=== PATIENT | male | born 1950 | race Caucasian/White ===

== ENCOUNTER 2017-07-20 06:39 | Observation (INO) | payer BC ==
[2017-07-20] MEDS ORDERED: NS 0.9% 1000 ML* 1,000 ML IV ONE (06:51)
[2017-07-20] MEDS ORDERED: Diltiazem IV* 5 MG/ML 5 ML VIAL (for loading dose/IV Push) (25 MG) IV PUSH ONE (06:51)
[2017-07-20 07:35] LABS: ABS Basophils 0.1 10^3/ul (0-0.2); ABS Eosinophils 0.1 10^3/ul (0-0.6); ABS Lymphocytes 2.2 10^3/ul (1.0-4.8); ABS Neutrophils 4.4 10^3/ul (1.5-7.7); ABS Nucleated RBC 0 10^3/ul; Eosinophil % 1.3 % (0-6); Hematocrit 36 % (42-52); Hemoglobin 12.1 g/dl (14.0-18.0); Lymphocyte % 28.3 % (25-47); Mean Corpuscular HGB Conc 34 g/dl (31-36); Mean Corpuscular Hemoglobin 34 pg (27-31); Mean Corpuscular Volume 99 fL (80-94); Mean Platelet Volume 6.5 um3 (7.4-10.4); Nucleated Red Blood Cells % 0.1; Platelet Count 385 10^3/ul (150-450); Red Blood Count 3.59 10^6/ul (4.0-5.4); Red Cell Distribution Width 19 % (10.5-15); White Blood Count 7.7 10^3/ul (3.5-10.8)
[2017-07-20] MEDS ORDERED: Diltiazem DRIP* 100 MG/100 ML ADDV.BAG IVPB ONE ×2 (07:42→08:52)
[2017-07-20 08:01] LABS: EGFR Non-African American 66.7 (>60)
--- NOTE | 2017-07-20 08:05 | RAD ---
HISTORY: Palpitation COMPARISONS: None VIEWS: 1: frontal portable view of the chest at 6:59 AM FINDINGS: LINES AND TUBES: None. CARDIOMEDIASTINAL SILHOUETTE: The cardiomediastinal silhouette is normal for portable technique. PLEURA: The costophrenic angles are sharp. No pleural abnormalities are noted. LUNG PARENCHYMA: The lungs are clear. ABDOMEN: The upper abdomen is clear. There is no subphrenic gas. BONES AND SOFT TISSUES: No bone or soft tissue abnormalities are noted. IMPRESSION: NO ACTIVE CARDIOPULMONARY DISEASE.
[2017-07-20] MEDS ORDERED: Nitroglycerin TAB 0.4 MG* 0.4 MG TAB SL ONE (08:13)
[2017-07-20] MEDS ORDERED: Nitroglycerin TAB 0.4 MG* 0.4 MG TAB SL PRN (08:52)
[2017-07-20] MEDS ORDERED: Acetaminophen TAB* 325 MG PO PRN (08:52)
[2017-07-20] MEDS ORDERED: Morphine VIAL* 4 MG/ML VIAL (1 ml vial) IV PRN (08:52)
[2017-07-20] MEDS ORDERED: Iohexol 350* (CONTRAST) 500 ML MDV IV ONE (08:54)
--- NOTE | 2017-07-20 09:37 | RAD ---
HISTORY: Incidentally, history of brain hemorrhage, anticoagulation COMPARISONS: None TECHNIQUE: Multiple contiguous axial CT scans were obtained of the head without intravenous contrast. FINDINGS: HEMORRHAGE/INFARCT: There is no hemorrhage or acute infarct. MASSES/SHIFT: There is no mass or shift. EXTRA-AXIAL SPACES: There are no extra-axial fluid collections. SULCI AND VENTRICLES: The sulci and ventricles are normal in size and position for the patient's stated age. CEREBRUM: There are no focal parenchymal abnormalities. BRAINSTEM: There are no focal parenchymal abnormalities. CEREBELLUM: There are no focal parenchymal abnormalities. VESSELS: The vessels are grossly normal. PARANASAL SINUSES: The paranasal sinuses are clear. ORBITS: The orbits are unremarkable. BONES AND SOFT TISSUE: No bone or soft tissue abnormalities are noted. OTHER: None IMPRESSION: NO ACUTE INTRACRANIAL PATHOLOGY.
--- NOTE | 2017-07-20 09:39 | RAD ---
HISTORY: Malignancy, atrial fibrillation, rule out PE COMPARISONS: None TECHNIQUE: Multiple contiguous axial CT scans of the chest were obtained after the administration of nonionic intravenous contrast, timed to the pulmonary arterial phase of contrast enhancement.. Coronal and sagittal multiplanar reformations are also submitted for review. FINDINGS: NECK AND THYROID: The lower neck and thyroid are unremarkable. CHEST WALL: There is no lower cervical, axillary, or supraclavicular lymphadenopathy by size criteria. HEART AND PERICARDIUM: The heart is unremarkable. AORTA AND PULMONARY VASCULATURE: There is no pulmonary arterial filling defect to suggest pulmonary embolism. Evaluation of the aorta is limited secondary to the phase of contrast administration but is grossly normal. MEDIASTINUM: There are subcentimeter short axis prevascular and paratracheal lymph nodes. There is a 1.3 cm short axis precarinal lymph node on the right. HARLEEN: There is no hilar lymphadenopathy by size criteria. AIRWAY AND ESOPHAGUS: The airway is unremarkable, without endobronchial filling defect. The esophagus is grossly normal. LUNG PARENCHYMA: There is emphysematous change PLEURA: No pleural abnormalities are noted. UPPER ABDOMEN: The upper abdomen is unremarkable. BONES AND SOFT TISSUES: Degenerative changes are noted along the spine. OTHER: None. IMPRESSION: 1. MILDLY ENLARGED MEDIASTINAL LYMPH NODE. 2. NO PULMONARY ARTERIAL FILLING DEFECT TO SUGGEST PULMONARY EMBOLISM.
--- NOTE | 2017-07-20 10:41 | ED ---
Miki Middleton Tenzin, scribed for Iván Farmer MD on 07/20/17 at 0759 . HPI Chest Pain - HPI Summary HPI Summary: Pt is a 66 years old male with a history of A-fib complaining of chest pain on the left side that started since last night. The pt complains of lightheadedness when he is standing up and SOB when he is walking around. He reports that he had 3 glasses of wine, coffee and smoked a cigarette last night. 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 The pt reports history of intracerebral hemorrhage and currently not on any anticoagulants. - History of Current Complaint Chief Complaint: EDChestPainROMI Time Seen by Provider: 07/20/17 07:18 Hx Obtained From: Patient Onset/Duration: Started Hours Ago, Still Present Timing: Constant, Lasting Hours Initial Severity: Moderate Current Severity: Mild Pain Intensity: 4 Pain Scale Used: 0-10 Numeric Associated Signs and Symptoms: Positive: Shortness of Breath, Lightheadedness - Allergy/Home Medications Allergies/Adverse Reactions: Allergies Allergy/AdvReac Type Severity Reaction Status Date / Time No Known Allergies Allergy Verified 07/20/17 06:52 Home Medications: Home Medications FLUoxetine CAP* [PROzac CAP*] 20 mg PO DAILY 07/20/17 [History Confirmed ] raNITIdine HCl [Gnp Acid Control 150 Maxi] 150 mg PO DAILY PRN 07/20/17 [ History Confirmed 07/20/17] PMH/Surg Hx/FS Hx/Imm Hx Cardiovascular History: Reports: Hx Atrial Fibrillation Opthamlomology History: Denies: Hx Legally Blind EENT History: Denies: Hx Deafness - Cancer History Cancer Type, Location and Year: Urethral cancer Infectious Disease History: No Infectious Disease History: Denies: Traveled Outside the [place] in Last 30 Days - Family History Known Family History: Positive: Other Family History: Pt denies any relevant family history. - Social History Alcohol Use: None Substance Use Type: Reports: None Smoking Status (MU): Never Smoked Tobacco Review of Systems Positive: Other - lightheadednes when standing up Positive: Chest Pain, Other - A-Fib Positive: Shortness Of Breath All Other Systems Reviewed And Are Negative: Yes Physical Exam - Summary Physical Exam Summary: Appearance: The patient is well-nourished in no acute distress and in no acute pain. Skin: The skin is warm and dry and skin color reflects adequate perfusion. HEENT: The head is normocephalic and atraumatic. The pupils are equal and reactive. The conjunctivae are clear and without drainage. Nares are patent and without drainage. Mouth reveals moist mucous membranes and the throat is without erythema and exudate. The external ears are intact. The ear canals are patent and without drainage. The tympanic membranes are intact. Neck: the neck is supple with full range of motion and non-tender. There are no carotid bruits. There is no neck vein distension. Respiratory: Chest is non-tender. Lungs are clear to auscultation and breath sounds are symmetrical and equal. Cardiovascular: Heart is Tachycardic and irregularly irregular rhythm. There is no murmur or rub auscultated. There is crackles in the right base. There is no peripheral edema and pulses are symmetrical and equal. Abdomen: The abdomen is soft and non-tender. There are normal bowel sounds heard in all four quadrants and there is no organomegaly palpated. Musculoskeletal: There is no back tenderness noted. Extremities are non-tender with full range of motion. There is good capillary refill. There is no peripheral edema or calf tenderness elicited. Neurological: Patient is alert and oriented to person, place and time. The patient has symmetrical motor strength in all four extremities. Cranial nerves are grossly intact. Deep tendon reflexes are symmetrical and equal in all four extremities. Psychiatric: The patient has an appropriate affect and does not exhibit any anxiety or depression. Triage Information Reviewed: Yes Vital Signs On Initial Exam: Initial Vitals Temp Pulse Resp BP Pulse Ox 97.0 F 138 18 120/95 97 07/20/17 06:49 07/20/17 06:49 07/20/17 06:49 07/20/17 06:49 07/20/17 06:49 Vital Signs Reviewed: Yes Diagnostics - Vital Signs Vital Signs Temp Pulse Resp BP Pulse Ox 07/20/17 07:33 97 07/20/17 07:27 95 15 115/85 96 07/20/17 07:25 105 15 120/81 97 07/20/17 07:04 101 18 118/93 97 07/20/17 06:49 97.0 F 138 18 120/95 97 - Laboratory Lab Results: Lab Results 07/20/17 Range/Units 07:28 WBC 7.7 (3.5-10.8) 10^3/ul RBC 3.59 L (4.0-5.4) 10^6/ul Hgb 12.1 L (14.0-18.0) g/dl Hct 36 L (42-52) % MCV 99 H (80-94) fL MCH 34 H (27-31) pg MCHC 34 (31-36) g/dl RDW 19 H (10.5-15) % Plt Count 385 (150-450) 10^3/ul MPV 6.5 L (7.4-10.4) um3 Neut % (Auto) 56.7 (38-83) % Lymph % (Auto) 28.3 (25-47) % [place] % (Auto) 12.5 H (0-7) % Eos % (Auto) 1.3 (0-6) % Baso % (Auto) 1.2 (0-2) % Absolute Neuts (auto) 4.4 (1.5-7.7) 10^3/ul Absolute Lymphs (auto) 2.2 (1.0-4.8) 10^3/ul Absolute Monos (auto) 1.0 H (0-0.8) 10^3/ul Absolute Eos (auto) 0.1 (0-0.6) 10^3/ul Absolute Basos (auto) 0.1 (0-0.2) 10^3/ul Absolute Nucleated RBC 0 10^3/ul Nucleated RBC % 0.1 Result Diagrams: 07/20/17 07:28 07/20/17 07:28 Lab Statement: Any lab studies that have been ordered have been reviewed, and results considered in the medical decision making process. - Radiology CXR Xray Interpretation: No Acute Changes - Impression: No active cardiopulmonary disease. Dr. Farmer reviewed this report. Radiology Interpretation Completed By: Radiologist - EKG 06:43 Cardiac Rate: Tachycardia - rate at 147 BPM EKG Rhythm: Atrial Fibrillation EKG Interpretation: The pt has RVR but no ischemia. EKG is interpreted by Dr. Farmer. Re-Evaluation - Re-Evaluation First Eval Change: Improved Chest Pain Course/Dx - Course Course Of Treatment: Mr. Mir presents with about a ten hour history of being in A-fib with RVR and chest pain. His rate was slowd on arrival with diltiazem but his trop returned high indeterminant at 3.5. His CP improved with slowing but then worsened again. He was given a NTG with complete relief. I spoke with Dr. Cosme who recommended rate control for now and the patient is being admitted to the hospitalist service. - Diagnoses Provider Diagnoses: Atrial fibrillation with RVR, Chest pain - Provider Notifications Discussed Care Of Patient With: Keagan Cosme Time Discussed With Above Provider: 09:01 Instructed by Provider To: Other - Dr. Cosme, cardiology, recommends rate control and admission. Dr. Titus, hospitalist, will admit the patient. - Critical Care Time Critical Care Time: 30-74 min Discharge - Sign-Out/Discharge Documenting (check all that apply): Discharge/Admit/Transfer - Discharge Plan Condition: Stable Disposition: ADMITTED TO [facility] Referrals: No Primary Care Phys,NOPCP [Primary Care Provider] - - Billing Disposition and Condition Condition: STABLE Disposition: [facility] [place] The documentation as recorded by the Miki cherry Tenzin accurately reflects the service I personally performed and the decisions made by me, Iván Farmer MD.
[2017-07-20] MEDS: NS 0.9% 1000 ML* 1,000 ML IV SCH (10:47)
--- NOTE | 2017-07-20 14:49 | HP ---
CC: Dr. Iván Granado in [place], [place], phone number is [phone]; Dr. Lorenzo Remy in [place], [place], phone number is [phone] HISTORY AND PHYSICAL: DATE OF ADMISSION: 07/20/17. TIME OF EVALUATION: 08:10 a.m. BUTTER LIQUEFIER: Dr. Iván Granado in [place], [place]. Phone number is [phone]. ONCOLOGIST: Dr. Lorenzo Remy in [place], [place]. Phone number is [phone] CHIEF COMPLAINT: "I am in atrial fibrillation." HISTORY OF PRESENT ILLNESS: Mr. Mir is a 66-year-old male with a complex past medical history that i ncludes urothelial malignancy, undergoing chemotherapy; hemorrhagic CVA; paroxysmal atrial fibrillati on, who presents to the emergency room with complaints of chest pain and irregular heartbeat. The patient lives in the [facility] and is visiting [place] for his son's graduation from [employer]. He states that he got here yesterday, had coffee, also had 3 glasses of wine and smoked 10 ci garettes, things that he has not been doing for some time. He states that around 10 last night, he s tarted to feel lightheaded and this is how he used to feel in the past when he had atrial fibrillatio n. So he checked his pulse and it was irregular. Shortly after, the patient developed retrosternal chest pain 5/10 in intensity and no radiation, associated with dyspnea on exertion. He took one dose of Bystolic last night but as his symptoms did not improve, he came to the emergency room around 6:49 today. The patient's history goes back to January last year when he was diagnosed with urothelial malignanc y. He states he developed urinary obstruction associated with severe pain and hypertension with systo lic blood pressure greater than 200. He went to [facility] in [place], [place] a nd he complained to the physician that he also had visual field loss and a CT of the brain showed hem orrhage. He was then transferred to [facility] in [place], [place] and he wa s evaluated by Neurology and had an angiogram performed at [facility]. He states chely t the angiogram was negative and the tentative conclusion at that time was that the hypertensive tono gency had caused the hemorrhage. There was concern for possible metastatic disease at that time but the patient states that was not confirmed. He was seen at [facility] for his malignancy. 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 He had 2 TURPs that solved the obstruction issue and now he has been receivin g chemotherapy since that time. He states that he becomes very symptomatic with the chemotherapy wit h lightheadedness, dizziness, weakness. He states that since January he has basically been sedentar y going through all this workup for the brain bleed, side effects from the chemotherapy, followup evelyn ointments. He states that a couple weeks ago, he was feeling lightheaded and he thought this could be secondary to the Bystolic he was taking for hypertension. So he discontinued that medication but as his sympto ms persisted, he then realized that the tamsulosin was the cause of his symptoms and when he stopped that medication, the lightheadedness resolved. He talked to his board certified arts therapist and he states that sinc e he has been in sinus rhythm for 4 years, his board certified arts therapist told him that the Bystolic was probably n ot necessary anymore, so he did not restart that medication and that brings us back to the episode of Afib that I described started last night. In the emergency room, the patient was found to be in atrial fibrillation with a heart rate of 141. At the time of my interview, the patient is already on Cardizem drip with the heart rate in the 80s. He was also chest discomfort 2/10 but after receiving sublingual nitro, the chest discomfort was ayah e. PAST MEDICAL HISTORY: 1. Urothelial malignancy as above. 2. Cerebral hemorrhage as described above. 3. Paroxysmal atrial fibrillation, last episode had been 4 years ago. 4. Hypertension. PAST SURGICAL HISTORY: 1. Status post TURP x2. 2. Orthopedic surgeries for his right AC dislocation and pinning of the right second finger. MEDICATION LIST: At this point, the patient is only on: 1. Fluoxetine 20 mg p.o. daily. 2. He takes ranitidine 150 mg p.o. daily as needed for GI issues after chemotherapy. ALLERGIES: No known drug allergies. FAMILY HISTORY: The patient states that his father and brothers have a history of paroxysmal atrial fibrillation. Father had prostate cancer, mother at age 44 of ovarian cancer and one of his raeann traci tested positive for BRCA2 gene mutation. SOCIAL HISTORY: The patient states he started smoking at age 14 a pack a day, and he quit in this year but has had relapses. He describes smoking 10 cigarettes yesterday. He also states that he used to drink a lot before, 3-4 doses of gin a day but since his diagnosis in January, he had qu it and yesterday was the first time he had alcohol again. He states that now he smokes marijuana whe n he receives chemotherapy to help with side effects but denies using any other drugs. Surrogate lettyi nathan maker is his Katrina Spencer, phone number is . REVIEW OF SYSTEMS: A 14-point review of systems was performed and all the pertinent negative and pos itive findings are in the HPI. PHYSICAL EXAMINATION GENERAL: The patient is a pleasant gentleman lying in the ED stretcher in no acute distress VITAL SIGNS: Temperature 97.0, heart rate is 89, respiratory rate is 18, oxygen saturation is 97% on 2 L nasal cannula, blood pressure is 129/87. HEENT: Pupils are equal. Moist mucous membranes. CHEST: Breath sounds present bilaterally with no added sounds. CVS: Normal S1, S2. Irregularly irregular. ABDOMEN: Soft, nontender, nondistended. Bowel sounds present. EXTREMITIES: Show no edema or calf tenderness. NEURO: He is alert, oriented x3. Able to move all 4 extremities. Power is equal bilaterally. LABORATORY AND IMAGING DATA: The patient had a CBC that showed WBC of 7.7, hemoglobin of 12.1, hesham tocrit of 36, platelets of 385 with 56% neutrophils. Chemistry showed a sodium of 139, potassium 4.5, chloride of 109, bicarb of 24, BUN of 13, creatinine of 1.1, glucose of 113, calcium 9.4. LFTs are normal. First troponin was 0.35. Chest x-ray showed no active cardiopulmonary disease. EKG done on 07/20/17 at 6:43 a.m. showed atrial fibrillation with rapid ventricular rate at 147 beats per minute with no ST-T changes. There is no prior EKG to compare. IMPRESSION: Mr. Mir is a 66-year-old male with a complex medical history that includes urothelial ma lignancy, undergoing chemotherapy; brain hemorrhage; paroxysmal atrial fibrillation; hypertension, wh o presents to the emergency room with complaints of chest pain and palpitations, found to be in atria l fibrillation with rapid ventricular rate. 1. Atrial fibrillation with rapid ventricular rate/chest pain, rule out acute coronary syndrome, rul e out pulmonary embolism. The patient's episode of atrial fibrillation at this time is fairly multifactorial considering his ca ffeine and alcohol consumption, his recent trip for his grandson's graduation and the fact that he di scontinued his beta-lit not that long ago but he is at risk for pulmonary embolism considering hi s malignancy. The patient will be admitted as observation to telemetry floor, so we can continue our workup. His f irst troponin was 0.35 and this may be secondary just to his atrial fibrillation with rapid ventricul ar rate, but we need to rule out acute coronary syndrome and pulmonary embolism. He will have a CTA of the chest and a cardiology consultation was requested with Dr. Cosme. He is responding to the Cardizem drip and his heart rate is already better controlled but the major i ssue at this point is anticoagulation. His [id number] score is 1 with his history of hypertension but to perform cardioversion, he would r equire at least 6 weeks of anticoagulation and at this point, we wait further information about his b rain hemorrhage, this does not feel like a safe option. I have requested records from his prior admissions and his board certified arts therapist and oncologist. If he does have a pulmonary embolism or if his troponin continues to trend up and he rules in for an acute coronary syndrome, then we will need a neurology consultation to decide about his anticoagulati on. 2. Hypertension. It has been controlled at this time. I am going to continue Cardizem. 3. Urothelial malignancy. The patient is scheduled for his next chemotherapy on 07/23/17. 4. DVT prophylaxis. The patient has a score of 4 on the DVT Prophylaxis Risk Assessment Guide, but until we have more records regarding his central nervous system bleed, the patient is going to have S CDs only. 5. Code status is full. TIME SPENT: Approximately 60 minutes was spent with the patient and interview, medical records review, physical examination to complete the admission, and more than half this time was spent face-t o-face with the patient in coordination of care. [id number]/[facility] #: [id number]
[2017-07-20] MEDS ORDERED: Diltiazem DRIP* 100 MG/100 ML ADDV.BAG IVPB SCH (15:00)
--- NOTE | 2017-07-20 19:50 | CONS ---
CARDIOLOGY CONSULTATION REPORT: DATE OF CONSULT: 07/20/17 REFERRING PHYSICIAN: Dr. Shamika Howard. REASON FOR CONSULT: Recurrence of atrial fibrillation. HISTORY OF PRESENT ILLNESS: I was kindly asked to see this patient, who has a history of atrial fibrillation with recurrence since last night. I am seeing the patient today 07/20/17 at 11:30 a.m. and his AF recurred apparently last night at 11 p.m. The patient states he was walking his dog, suddenly felt lightheaded with palpitations and chest discomfort and when he checked his pulse , it was irregular. 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 He came to the emergency room this morning where he was found to have rapid atrial fibrillation. He has been started on a Cardizem drip and his heart rate is now well controlled. He did receive 1 sublingual nitroglycerin with relief of his chest pain. He estimates his total chest pain duration was 10 hours and at worse was 4/10 with no radiation. He did feel shortness of breath at that time. Currently, the patient feels well at rest with his heart rate in the 70s while remaining in atrial fibrillation. Past cardiac history includes paroxysmal atrial fibrillation. He estimates he has had 2 or 3 episodes in the past with the last episode 4 years ago and the PAF episodes seemed to be precipitated by alcohol overuse. He had been on Bystolic up until 10 days ago but because of significant orthostatic symptoms while on both Bystolic and Flomax, he has stopped both of those medications. He recently met his sand cutter operator where he is from in the [place], [place] and they are rechecking an echocardiogram and Holter monitor for the patient because of recent lightheadedness episodes which were felt to be due to orthostasis. Other past medical history includes urothelial cancer and he is currently on chemotherapy although that had to be held recently because of neutropenia, GERD , depression, BPH, prior intracranial bleed due to hypertensive urgency on 12/28 when he had severe pain from urinary obstruction. OUTPATIENT MEDICATIONS: 1. Prozac 20 mg once a day. 2. Zantac 150 mg once a day p.r.n. ALLERGIES TO MEDICATIONS: None. He denies shrimp, seafood or dye allergy. FAMILY HISTORY: His father with history of AFib. His brother has a history of PAF. No family history of stroke. His father with a history of prostate cancer, mother with a history of ovarian cancer and she at 44. No family history of diabetes. SOCIAL HISTORY: He smokes 6 to 7 cigarettes per day after having quit for 6 months. He has approximately a [id number]-[id number] history or little less than that. He previously drank significant amounts of alcohol, but since December 2016, has not been drinking alcohol until last night when he had 3 glasses of wine. He also drank coffee earlier yesterday. In the past, he used cocaine 30 plus years ago and he occasionally uses marijuana to help him manage the chemotherapy symptoms at this time. He has been for 22 years and with his for 34 years. He is a physician maintenance assistant by profession, but is not practising at this time. He does not do regular exercise due to significant orthostasis and chemotherapy side effects. He lives in the [facility] and had practised in [facility] 22 years ago. He is currently in [place] to attend his son's graduation from [employer] in [employer]. REVIEW OF SYSTEMS: The patient had a prior stroke in December 2016 with visual defect and that was felt due to his intracranial bleed from hypertension with blood pressure at that time of 240/140. He has a history of urothelial cancer and he has had 2 TURPs and is on chemotherapy being held for neutropenia. No XRT. He denies vomiting of blood, coughing up blood, bright red blood per rectum, bleeding stomach ulcers, renal calculi, cholelithiasis, asthma, emphysema, pneumonia, tuberculosis, sleep apnea, home oxygen use, diabetes. He has a history of hypertension. Denies prior history of AK, congestive heart failure, cardiac surgery. No recent palpitations until last night for 4 years. No heart murmur. He has a history of depression. Denies lupus, psoriasis, seizures, Parkinson's disease, myasthenia gravis, thyroid disorders, liver disorders, kidney disorders, claudication symptoms, pulmonary emboli, deep venous thrombosis, peripheral arterial disease, peripheral edema. He does have mild heartburn for which he uses Zantac p.r.n. PHYSICAL EXAM: Height 6 feet 1 inch, weight 199 pounds, temperature 98.8 degrees Fahrenheit, pulse is currently 75-86 and had been as high as 140 on admission to the ER, O2 saturation 95%, blood pressure 116/84. On general exam , he is a well- developed, well-nourished man who appears to be in no acute distress at rest. HEENT shows the cranium is normocephalic and atraumatic. He has moist mucosal membranes. Neck veins are not distended. There are no carotid bruits. Visible skin warm and perfused. Affect is appropriate. He appears oriented. No significant kyphoscoliosis on back exam. Lungs are clear to auscultation. No wheezes, no rales. Cardiac Exam: S1, S2, irregular rate. No significant murmurs, rubs or gallops. PMI is nondisplaced. Abdomen: Soft , nondistended, appears benign. Extremities: Without significant edema. Pulses appear grossly intact. DIAGNOSTIC STUDIES/LAB DATA: The patient had a CTA of his chest earlier today. Per report of the radiologist, states no pulmonary artery filling defect with mildly enlarged mediastinal lymph node. A 12-lead EKG completed 07/20/17 at 6:43 a.m. shows rapid atrial fibrillation at 147 beats per minute. White blood cell count 7.7, hematocrit 36, platelet count 385. Sodium 139, potassium 4.5, chloride 109, bicarbonate 24, BUN 13, creatinine 1.11. Troponin #1 is 0.35. IMPRESSION: Mr. Mir is a pleasant 66-year-old gentleman with prior history of paroxysmal atrial fibrillation now with recurrence since last night. He is not a anticoagulation candidate due to intracranial bleed within the past 6-7 months and therefore not a cardioversion candidate. He is responding well to heart rate control with Cardizem drip. I have discussed this in detail with the patient and we are making the following recommendation with which he is in agreement. PLAN/RECOMMENDATIONS: 1. Continue Cardizem drip for at least 24 hours for heart rate control unless he were to convert to normal sinus rhythm. 2. No anticoagulation. Defer to the hospitalist if the patient is a candidate for low-dose aspirin. 3. The patient is not a candidate for cardioversion as he cannot receieve antiocoagulation. 4. We will cycle troponins; likely mild troponinemia is due to rapid AFib as again, he waited 7+ hours prior to presenting with his rapid AF. 5. Check echocardiogram in the morning. 6. We would plan to convert the patient to Bystolic 5 mg once a day once he is off the Cardizem drip or if he were to convert to sinus rhythm. 7. Avoid AF precipitants including alcohol, cigarette smoking with nicotine and caffeine ingestion. 8. Other management is per the hospitalist medicine service and I have discussed the case with Dr. Shamika Howard. Dear Dr. Shamika Howard, many thanks for asking me to participate in the cardiovascular consultative care of Mr. Mir. Please do not hesitate to contact me if you have any questions or concerns regarding the patient's cardiovascular consultative care. [id number]/[facility] #: [id number] MTDD
[2017-07-20] MEDS ORDERED: Calcium Carbonate CHEW TAB* 500 MG (TUMS) PO ONE (23:26)
[2017-07-21] MEDS: NS 0.9% 1000 ML* 1,000 ML IV SCH (01:50)
--- NOTE | 2017-07-21 08:51 | ECHO ---
Patient: MONCHO CARIAS [facility] Rec#: [id number] : 1950 Date: 07/21/2017 Age: 66y Height: 185.42 cm / 73.0 in Weight: 88.45 kg / 194.9 lbs Sex: M BSA: 2.13 Room#: [facility] Admit Date#: 07/20/2017 Type: Inpatient Referring: Shamika Avendano MD Reading: Keagan Cosme MD Data Conversion Developer: Martha Khan [facility] Transthoracic Echocardiogram Indication: A-fib//CP BP: 138/87 HR: 60 Rhythm: NSR Findings History: PAF,chemo for urethrial cancer,depression,HTN,former smoker. Technical Comments: The study quality is good. Completed at 0840. Left Ventricle: The left ventricular chamber size is normal. Global left ventricular wall motion and contractility are within normal limits. There is normal left ventricular systolic function. The estimated ejection fraction is 60-65%. Abnormal left ventricular diastolic function is observed. Left Atrium: The left atrial chamber size is normal. Right Ventricle: The right ventricular cavity size is normal. The right ventricular global systolic function is normal. Right Atrium: The right atrial cavity size is normal. Aortic Valve: The aortic valve is trileaflet. There is no evidence of aortic valve thickening. There is no evidence of aortic regurgitation. There is no evidence of aortic stenosis. Mitral Valve: The mitral valve leaflets appear normal. There is a trace of mitral regurgitation. Tricuspid Valve: The tricuspid valve leaflets are normal. There is no evidence of tricuspid valve regurgitation. Unable to estimate the right ventricular systolic pressure. There is no tricuspid stenosis. Pulmonic Valve: The pulmonic valve appears normal. There is no evidence of pulmonic regurgitation. There is no pulmonic stenosis. Pericardium: The pericardium is not well visualized. There is no significant pericardial effusion. Aorta: There is no dilatation of the ascending aorta. There is no dilatation of the aortic arch. There is mild dilatation of the aortic root. Pulmonary Artery: The main pulmonary artery is not well visualized. Venous: The inferior vena cava appears normal in size. There is a greater than 50% respiratory change in the inferior vena cava dimension. Conclusions There is normal left ventricular systolic function. The estimated ejection fraction is 60-65%. Global left ventricular wall motion and contractility are within normal limits. Abnormal left ventricular diastolic function is observed. Normal cardiac chamber sizes. Functionally benign heart valves. There is mild dilatation of the aortic root. There is no prior echocardiogram available to compare with at this time. Measurements Name Value Normal Range RVIDd (AP) 2D 3 cm (0.9 - 2.6) RVDdMajor (2D) 4.3 cm (2.2 - 4.4) RAd ISD 4CH 4.6 cm (3.4 - 4.9) RA (A4C)W 3.7 cm (2.9 - 4.6) IVSd (2D) 1 cm (0.6 - 1) LVPWd (2D) 1.2 cm (0.6 - 1) LVIDd (2D) 3.6 cm (3.6 - 5.4) LVIDs (2D) 2.9 cm - LV FS (2D) 19 % (25 - 45) Aortic Annulus 2.4 cm (1.4 - 2.6) Ao root diameter (2D) 3.7 cm (2.1 - 3.5) Ascending Ao 3.3 cm (2.1 - 3.4) Aortic arch 2.8 cm (1.8 - 3.4) Descending Ao 0.8 cm - LA dimension (AP) 2D 3.8 cm (2.3 - 3.8) LAd ISD 4CH 4.8 cm (2.9 - 5.3) LA ISD 4CH W 4.1 cm (2.5 - 4.5) Name Value Normal Range LA ESV SP 4CH (A/L) 52 ml - LA ESV SP 2CH (A/L) 54 ml - LA ESV BP (A/L) 54 ml - LA ESV BP (A/L) index 25.26 ml/m2 - LA ESV SP 4CH (MOD) 43 ml - LA ESV SP 2CH (MOD) 52 ml - Name Value Normal Range MV E-wave Vmax 0.8 m/sec - MV deceleration time 166 msec - MV A-wave Vmax 1 m/sec - MV E:A ratio 0.87 ratio - LV septal e' Vmax 0.09 m/sec - LV lateral e' Vmax 0.09 m/sec - LV E:e' septal ratio 8.89 ratio - LV E:e' lateral ratio 8.89 ratio - Name Value Normal Range AV Vmax 1.2 m/sec - AV VTI 30 cm - AV peak gradient 6.17 mmHg - AV mean gradient 3.2 mmHg - LVOT Vmax 1.1 m/sec - LVOT VTI 31.6 cm - LVOT peak gradient 5.16 mmHg - LVOT mean gradient 2.84 mmHg - Name Value Normal Range IVC diameter 1.9 cm - Name Value Normal Range PV Vmax 0.8 m/sec - PV peak gradient 2.39 mmHg -
[2017-07-21] MEDS ORDERED: FLUoxetine CAP* 20 MG PO SCH (09:00)
[2017-07-21 09:35] VITALS: BP 142/79
--- NOTE | 2017-07-21 18:15 | DS ---
CC: Dr. Lorenzo Remy in [place], [place], phone number [phone]; Dr. Iván Granado in [place], [place], phone number [phone]; Dr. Cosme from Cardiology. * DISCHARGE SUMMARY: DATE OF ADMISSION: 07/20/17. DATE OF DISCHARGE: 07/21/17. PRIMARY ONCOLOGIST: Dr. Lorenzo Remy, in [place], [place]. Phone number [phone]. SPECIALTY DEPARTMENT SUPERVISOR: Dr. Iván Granado in [place], [place]. Phone number [phone]. DISCHARGE DIAGNOSES: 1. Atrial fibrillation with rapid ventricular response. The patient was cardioverted to normal sinus rhythm on Cardizem drip. 2. Mild troponin elevation, likely due to demand ischemia. 3. A 1.3 cm mildly enlarged paratracheal lymph node, noted incidentally on CT angiogram of the chest. SECONDARY DIAGNOSES: 1. History of urothelial malignancy, currently chemo was held due to neutropenia. 2. History of cerebral hemorrhage in January 2017. 3. History of paroxysmal atrial fibrillation. Last episode prior to current one was 4 years ago. 4. Hypertension. MEDICATIONS AT DISCHARGE: Include: 1. Fluoxetine 20 mg daily. 2. Ranitidine 150 mg daily as needed. 3. Bystolic 5 mg daily. LABORATORY DATA AND STUDIES PERFORMED DURING THE HOSPITAL STAY: On 07/20/17, white blood cell count of 7.7, hemoglobin 12.1, hematocrit of 36, MCV of 99 and platelets of 385. Sodium was 139, potassium 4.5, chloride 109, carbon dioxide 24, BUN 13, creatinine 1.11. The patient's troponin was 0.35 on admission, peaked at 0.41 and the last one obtained was 0.36. Lipid profile obtained actually in the middle of the day showed triglycerides of 137, cholesterol total of 162, HDL 45, LDL was 89. TSH was noted to be 0.75. CT angiogram of the chest obtained on 07/20/17. Impression: "Mildly enlarged mediastinal lymph node. No pulmonary artery filling defect to suggest pulmonary embolism." Transthoracic echocardiogram showed EF of 60% to 65% with global left ventricular wall motion and contractility within normal limits. Functionally benign heart valves. CONSULTATIONS DURING THE HOSPITAL STAY: Included Dr. Cosme from Cardiology. HOSPITALIZATION COURSE: Supa Mir is a 66-year-old male who came in to [place] for his son's graduation from [employer]. He states that he developed symptoms of lightheadedness and he noted that he was in atrial fibrillation after he drank 3 glasses of wine on 07/19/17 night. He continued to be in atrial fibrillation for several hours and at some point he started developing substernal chest pain. At that point, he came into ED for evaluation. It appears that he came into the ED approximately 7 hours into his atrial fibrillation episode. His troponin was mildly elevated. His EKG showed atrial fibrillation with rapid ventricular response. The patient was placed on Cardizem drip. Due to his history of recent intracranial hemorrhage, he was not anticoagulated. On Cardizem drip, he converted to normal sinus rhythm in the middle of the day of 07/20/17. His chest pain symptoms resolved by the time of admission. The patient was seen by Dr. Cosme from Cardiology, who recommended for the patient to continue his low dose of Bystolic at 5 mg daily, which the patient discontinued himself 2 weeks prior to his admission due to lightheadedness. The patient was recommended to stay for cardiac stress test in the morning on Saturday, but he declined, stated that he is going to see his inspector watch parts within the next week for followup anyway. He also wanted to be discharged to go to his son's graduation. The patient was recommended to come back to the ER if chest pain or shortness of breath or lightheadedness or any other worrisome symptoms recur. PHYSICAL EXAM AT THE TIME OF DISCHARGE: Blood pressure of 142/79, heart rate of 58 and regular, respiratory rate of 12, oxygen saturation 99% on room air. Temperature 97.8. General: The patient is a very pleasant 66-year-old male who is in no acute distress, alert, awake and oriented x3. HEENT: Head atraumatic, normocephalic. Eyes: Pupils are equal and reactive to light and accommodation. Oropharynx clear. Mucosa moist. Neck: Supple. No JVD. No bruits bilaterally. Cardiovascular: Regular rate and rhythm. No murmur. Respiratory: Clear to auscultation bilaterally. Abdomen: Soft, nontender. Bowel sounds are present in all 4 quadrants. Extremities: There is no edema. Peripheral pulses +2 bilaterally. No clubbing or cyanosis. On neuro evaluation , speech is clear. Cranial nerves II through XII grossly intact. Motor strength is 5/5 bilaterally. Please note that this is a short summary of the patient's hospitalization. Please refer to further medical records for details. In addition, the patient is recommended to follow up with his primary oncologist as well as inspector watch parts as previously scheduled. [id number]/[facility] #: [id number] MTDD
== END 2017-07-21 11:00 | disposition home or self-care (01) ==
LOC: ED 06:39 → MEDTELE 08:40
PROVIDERS: ADMIT Internal Medicine; ATTEND Internal Medicine
DX: I48.0 Paroxysmal atrial fibrillation (principal); R79.89 Other specified abnormal findings of blood chemistry; R59.9 Enlarged lymph nodes, unspecified; D70.9 Neutropenia, unspecified; C68.0 Malignant neoplasm of urethra; Z86.79 Personal history of other diseases of the circulatory system; I10 Essential (primary) hypertension; R06.02 Shortness of breath; Z87.891 Personal history of nicotine dependence; Z92.21 Personal history of antineoplastic chemotherapy
CPT/HCPCS: 36415; 70450; 71045; 71275; 80053; 80061; 83735; 84443; 84484; 85025; 93005; 93306; 99284; 99406; A9270-GY; G0378; Q9967